=== PATIENT | female | born 1965 | race Caucasian/White ===

== ENCOUNTER 2016-11-16 06:56 | Day surgery (SDC) | payer MEDICARE, BC ==
[~2016-11-16 06:56] MED LIST: ADVAIR 100-501 EACH PO; CALCIUM ACETAT667 M3 PO; LIPITOR20 M1 PO; LOSARTAN POTASS25 M1 PO; NEPRO-VITE; OMEPRAZOLE20 M3 PO; PERITONEAL DIALYSIS; PROAIR HFA8.5 GM INH; RENVELA800 M1 PO; ULTRAM50 M1 PO; ZYLOPRIM100 M1 PO
[2016-11-16 07:47] LABS: BASO % 0.5 % (0-2); BASO ABSOLUTE COUNT 0.1 tho/cmm (0.0-0.2); EOS % 6.9 % (0-7); EOSINOPHIL ABSOLUTE COUNT 0.6 tho/cmm (0.0-0.7); HCT-HEMATOCRIT 32.8 % (34.0-49.0); HGB-HEMOGLOBIN 10.8 gm/dl (12.0-15.5); IMMATURE GRANULOCYTES ABSOLUTE 0.12 tho/cmm (0-0.03); IMMATURE GRANULOCYTES PERCENT 1.3 % (0-0.3); LYMPH % 23.3 % (20-45); LYMPH ABSOLUTE COUNT 2.2 tho/cmm (0.8-4.5); MCH (MEAN CORPUSCULAR HGB) 32.2 pg (28.0-32.0); MCHC MEAN CORPUSCULAR HGB CONC 32.9 % (32.0-36.0); MCV (MEAN CELL VOLUME) 97.9 fl (82.0-96.0); MONO % 6.6 % (0-12); MONOCYTE ABSOLUTE COUNT 0.6 tho/cmm (0.0-1.2); NEUTROPHIL ABSOLUTE COUNT 5.7 tho/cmm (1.6-8.0); NEUTROPHIL-AUTOMATED 5.7 tho/cmm (1.6-8.0); NEUTROPHILS % 61.4 % (40-80); PLATELET COUNT 262 tho/cmm (150-450); RED BLOOD COUNT 3.35 mil/cmm (4.00-5.20); RED CELL DISTRIBUTION WIDTH 15.8 % (12.4-16.4); WHITE BLOOD COUNT 9.3 tho/cmm (4.0-10.0)
[2016-11-16 08:06] LABS: ANION GAP 19 mmol/L (0-20); BLOOD UREA NITROGEN 79 mg/dl (6-24); CALCIUM 7.9 mg/dl (8.5-10.5); CARBON DIOXIDE-VENOUS 26 mmol/L (22-32); CHLORIDE 96 mmol/l (96-110); GLUCOSE 97 mg/dL (70-110); SODIUM 137 mmol/L (135-145); eGFR VALUE FOR BLACK 2 mL/Min
[2017-04-29] MEDS ORDERED: LEXAPRO10 M2 PO (08:45)
[2017-04-29] MEDS ORDERED: NORVASC5 M2 PO (08:46)
[2017-04-29] MEDS ORDERED: CALCIUM ACETAT667 M3 PO (08:46)
[2017-04-29] MEDS ORDERED: RENA-VITE RX T1 EACH PO (08:49)
[2017-04-29] MEDS ORDERED: FLONASE ALLERG9.9 ML (08:49)
[2017-04-29] MEDS ORDERED: GENTAMICIN SULF30 G1 TP (09:50)
[2017-04-29] MEDS ORDERED: RENVELA800 M1 PO ×2 (09:52)
[2017-04-29] MEDS ORDERED: EPOGEN20000 UNIT IV (09:53)
[2017-04-29] MEDS ORDERED: KEFLEX500 M4 PO (10:32)
[2017-04-30] MEDS ORDERED: MUCINEX600 M1 PO (16:51)
== END 2016-11-16 10:20 ==
LOC: ENDOS 06:56 → SHSB 06:59 → ENDOS 09:00
PROVIDERS: Anesthesiology
PROC: 0DJ08ZZ Inspection of Upper Intestinal Tract, Via Natural or Artificial Opening Endoscopic (ICD-10-PCS; principal; 2016-11-16)
DX: R93.3 Abnormal findings on diagnostic imaging of other parts of digestive tract (principal); I10 Essential (primary) hypertension; E78.00 Pure hypercholesterolemia, unspecified; M19.90 Unspecified osteoarthritis, unspecified site; E07.9 Disorder of thyroid, unspecified; F41.9 Anxiety disorder, unspecified; J45.909 Unspecified asthma, uncomplicated; M10.9 Gout, unspecified; N19 Unspecified kidney failure; Z79.899 Other long term (current) drug therapy; Z98.890 Other specified postprocedural states; Z90.710 Acquired absence of both cervix and uterus